=== PATIENT | male | born 1955 | race Caucasian/White ===

== ENCOUNTER → 2024-04-29 12:57 | Outpatient (CLI) | payer MEDICARE, OTHER, SELFPAY ==
--- NOTE | 2024-04-29 13:01 | DI.CT.S_ITS ---
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 TECHNIQUE: Noncontrast 2.0-2.5 mm thick sections acquired from the pulmonary apices to the posterior costophrenic angles. 7 mm thick axial MIP, and 5 mm coronal and sagittal reformats were then acquired. For radiation dose reduction, the following was used: automated exposure control, adjustment of mA and/or kV according to patient size. COMPARISON: None. FINDINGS: Image quality: Diagnostic. Lower Neck: No enlarged lymph nodes. Thyroid: No thyroid nodules which require sonographic follow up, per consensus guidelines. Axillae: No enlarged lymph nodes. Chest Wall: Unremarkable. Bones: Old thoracic compression. Lungs and Pleura: No pneumothorax or pleural effusions. Advanced emphysematous change. No solid pulmonary nodules. Subsolid pulmonary nodule measuring 9 mm, extreme left lung base, image 279 of series 3. Heart: Heart size is normal. No pericardial effusion. Thoracic Vessels: Right main pulmonary artery measures 3.3 cm raising the question of possible pulmonary arterial hypertension. Aorta is normal in caliber. Mediastinum and Miri: No enlarged lymph nodes. Esophagus: No wall thickening. No hiatal hernia. Upper Abdomen: Visualized upper abdomen solid organs and bowel loops appear normal. IMPRESSION: Advanced emphysematous change. 9 mm subsolid pulmonary nodule. LUNG-RADS 3; recommend six-month follow-up CT chest. Clinically Significant Non-pulmonary Findings: Question pulmonary arterial hypertension. Dictated by: Colt Power M.D. on 04/29/2024 at 19:52 Approved by: Colt Power M.D. on 04/29/2024 at 19:57
== END ==
PROVIDERS: PCP Nurse Practitioner Family; Referring Provider Student in an Organized Health Care Education/Training Program; Visit Provider Student in an Organized Health Care Education/Training Program
DX: Z87.891 Personal history of nicotine dependence (principal); Z12.2 Encounter for screening for malignant neoplasm of respiratory organs; R91.1 Solitary pulmonary nodule
CPT/HCPCS: 71271